=== PATIENT | male | born 1955 | race Caucasian/White ===

== ENCOUNTER 2021-05-12 14:30 | Observation (INO) ==
[2021-05-12] MEDS ORDERED: NITROGLYCERIN SL 0.4 MG TABLET SL PRN ×2 (15:17→16:45)
[2021-05-12] MEDS ORDERED: ASPIRIN 325 MG TABLET PO STA (15:17)
[2021-05-12 15:25] LABS: Basophils % 0.4 % (0.0-0.8); Eosinophils # 0.2 10*3/uL (0.0-0.87); Eosinophils % 1.8 % (0.00-10.9); Hematocrit 43.5 VOL% (42.0-52.0); Hemoglobin 14.2 GM/DL (14.0-18.0); Immature Granulocytes % 0.3 %; Immature Granulocytes Absolute 0.03 #; Lymphocytes # 1.3 10*3/uL (1.4-4.0); Lymphocytes % 13.6 % (21.2-54.2); Mean Corpuscular HGB Conc 32.6 GM/DL (32-36); Mean Corpuscular Volume 87.9 FL (87-102); Mean Platelet Volume 11.6 FL (9.6-12.0); Monocytes % 7.1 % (1.7-12.7); Neutrophils % 76.8 % (38.7-73.9); Platelet Count 306 T/CUMM (130-400); Red Blood Count 4.95 MC/CUMM (3.8-5.5); Red Cell Distribution Width 13.5 % (9.3-17.3); White Blood Count 9.6 T/CUMM (4-12)
[2021-05-12 15:38] LABS: Albumin 3.9 G/DL (3.4-5.0); Bilirubin,Total 0.6 MG/DL (0.20-1.00); Calcium 10.5 MG/DL (8.5-10.1); Osmolality,Calculated 275.7 MOS/KG (273-304); Potassium 4.2 MMOL/L (3.5-5.1); Total Protein 7.7 G/DL (6.4-8.2)
[2021-05-12] MEDS ORDERED: ALBUTEROL 2.5 MG/3 ML NEB RESP TX PRN (16:41)
[2021-05-12] MEDS ORDERED: ACETAMINOPHEN 325 MG TABLET PO PRN (16:41)
[2021-05-12] MEDS ORDERED: hydrALAZINE 20 MG/1 ML VIAL IV PRN (16:41)
[2021-05-12] MEDS ORDERED: GLUCAGON 1 MG VIAL IM PRN (16:41)
[2021-05-12] MEDS ORDERED: DOCUSATE SODIUM 100 MG CAPSULE PO PRN (16:41)
[2021-05-12] MEDS ORDERED: guaiFENesin/DM ER 600-30 MG TABLET PO PRN (16:41)
[2021-05-12] MEDS ORDERED: DEXTROSE 50% 25 GM/50 ML SYRINGE IV PRN (16:41)
[2021-05-12] MEDS ORDERED: MORPHINE 2 MG/1 ML SYRINGE IV PRN (16:41)
[2021-05-12] MEDS ORDERED: ONDANSETRON 4 MG/2 ML VIAL IV PRN (16:41)
[2021-05-12] MEDS ORDERED: ALUM/MAG/SIMETH/LIDO VISC 1:1 30 ML BOTTLE PO STA (16:43)
[2021-05-12] MEDS ORDERED: MAGNESIUM SULF RIDER 2 GM/50 ML PREMIX IV PRN (16:45)
[2021-05-12] MEDS ORDERED: POTASSIUM CHLORIDE 20 MEQ TABLET PO PRN (16:45)
[2021-05-12] MEDS ORDERED: MAGNESIUM SULF RIDER 4 GM/100 ML PREMIX IV PRN (16:45)
[2021-05-12] MEDS ORDERED: ENOXAPARIN 100 MG/ML SYRINGE SUBCUT SCH (17:00)
[2021-05-12] MEDS ORDERED: ENOXAPARIN 40 MG/0.4 ML SYRINGE SUBCUT SCH (21:00)
[2021-05-12] MEDS: CHOLECALCIFEROL 1,000 UNIT TABLET PO SCH (22:24)
[2021-05-13 05:52] LABS: Bilirubin,Urine Negative (Negative); Blood, Urine Negative (Negative); Glucose,Urine (UA) Negative (Negative); Ketones,Urine Negative (Negative); Mucus,Urine Occasional /LPF (Occasional); Nitrite,Urine Negative (Negative); Protein,Urine Negative; RBC,Urine 1 /HPF (0-4); Urine Appearance CLEAR (Clear); Urine Color Yellow (Yellow); Urine Specific Gravity 1.012 (1.001-1.035); Urine Urobilinogen < 2.0 EU/DL (<2.0)
[2021-05-13 05:53] LABS: Basophils # 0.1 10*3/uL (0.0-0.2); Basophils % 0.6 % (0.0-0.8); Eosinophils # 0.3 10*3/uL (0.0-0.87); Eosinophils % 3.3 % (0.00-10.9); Hematocrit 42.1 VOL% (42.0-52.0); Hemoglobin 13.4 GM/DL (14.0-18.0); Immature Granulocytes % 0.3 %; Immature Granulocytes Absolute 0.03 #; Lymphocytes # 2.7 10*3/uL (1.4-4.0); Lymphocytes % 27.3 % (21.2-54.2); Mean Corpuscular HGB Conc 31.8 GM/DL (32-36); Mean Corpuscular Volume 90.1 FL (87-102); Mean Platelet Volume 11.9 FL (9.6-12.0); Monocytes % 9.3 % (1.7-12.7); Neutrophils % 59.2 % (38.7-73.9); Platelet Count 305 T/CUMM (130-400); Red Blood Count 4.67 MC/CUMM (3.8-5.5); Red Cell Distribution Width 13.5 % (9.3-17.3); White Blood Count 9.8 T/CUMM (4-12)
[2021-05-13 06:33] LABS: Albumin 3.3 G/DL (3.4-5.0); Bilirubin,Total 1.1 MG/DL (0.20-1.00); Calcium 9.2 MG/DL (8.5-10.1); Osmolality,Calculated 280.3 MOS/KG (273-304); Potassium 3.6 MMOL/L (3.5-5.1); Risk Ratio 5.24; Thyroid Stimulating Hormone 1.9 uIU/ml (0.358-3.74); Total Protein 7.2 G/DL (6.4-8.2); VLDL Cholesterol 37.2 MG/DL
[2021-05-13] MEDS ORDERED: KETOROLAC 30 MG/1 ML VIAL IV ONE (08:57)
[2021-05-13] MEDS ORDERED: COENZYME Q10 100 MG CAPSULE PO SCH (09:00)
[2021-05-13] MEDS ORDERED: PANTOPRAZOLE 40 MG TABLET PO SCH (09:00)
[2021-05-13] MEDS ORDERED: ASPIRIN EC 325 MG TABLET PO SCH (09:00)
[2021-05-13] MEDS: CHOLECALCIFEROL 1,000 UNIT TABLET PO SCH (09:41)
[2021-05-13 11:50] VITALS: BP 108/70
== END 2021-05-13 14:18 | disposition home or self-care (01) ==
LOC: N.ED 14:30 → N.EDINP 14:30 → SUATTDRO 16:41 → N.TELES 17:22
PROVIDERS: ADMIT Internal Medicine; ATTEND Internal Medicine Geriatric Medicine